=== PATIENT | female | born 1985 | race Caucasian/White ===

== ENCOUNTER 2016-10-26 13:31 | Observation (INO) | payer SELFPAY ==
[~2016-10-26] VITALS: Ht 162.6 cm; Wt 67.1 kg
[2016-10-26 13:39] VITALS: BP 108/74; PULSE 102; RESP 18; TEMP 100; O2SAT 98
--- NOTE | 2016-10-26 14:16 | PD ---
HPI Chief Complaint: Complaint Time Seen by Provider: 13:56 Travel History International Travel<30 days: No Contact w/Intl Traveler<30days: No Traveled to known affect area: No History of Present Illness HPI The patient was seen and examined in the presence of the nurse. Patient complains of low back pain and lightheadedness and urinary frequency. She has a temp of 100. Severity symptoms is moderate. Duration 3 days. No alleviating factors. No exacerbating factors. She does not have any midline back pain but it's more in the flank regions. PFSH Past Medical History Hx Anticoagulant Therapy: No Asthma: Yes Cardiovascular Problems: No Chemotherapy: No Cerebrovascular Accident: No Diabetes: No Diminished Hearing: No Hypertension: Yes Respiratory: Yes Immunizations Current: Yes Thyroid Disease: Yes (GOITER, HAS NOT BEEN SEEN BY PRIMARY YET) ?: Not LMP: 09/30/16 Menopausal: No : 4 Para: 1 Miscarriage: 1 : 2 Past Surgical History Hysterectomy: No Social History Alcohol Use: Yes (rare) Tobacco Use: Yes (1/2 PPD) Substance Use: Yes (HX IV DRUG ABUSE, states dilaudid 2mg qid ) Allergies-Medications (Allergen,Severity, Reaction): Coded Allergies: No Known Allergies (Verified , 10/26/16) Reported Meds & Prescriptions Reported Meds & Active Scripts Active No Active Prescriptions or Reported Medications Review of Systems General / Constitutional: Positive: Fever Eyes: No: Visual changes HENT: Positive: Lightheadedness, No: Headaches Cardiovascular: No: Chest Pain or Discomfort Respiratory: No: Shortness of Breath Gastrointestinal: No: Abdominal Pain Genitourinary: Positive: Frequency, No: Dysuria Musculoskeletal: Positive: Pain Skin: No Rash Neurologic: No: Weakness Psychiatric: No: Depression Endocrine: No: Polydipsia Hematologic/Lymphatic: No: Easy Bruising Physical Exam Narrative GENERAL: Well-nourished, well-developed patient with multiple somatic complaints . SKIN: Focused skin assessment reveals no rash and nodules. Skin is Warm and dry. HEAD: Atraumatic. Normocephalic. EYES: Pupils equal and round. No scleral icterus. No injection or drainage. ENT: No nasal bleeding or discharge. Mucous membranes pink and moist. NECK: Trachea midline. No JVD. CARDIOVASCULAR: Regular rate and rhythm. No murmur appreciated. RESPIRATORY: No accessory muscle use. Clear to auscultation. Breath sounds equal bilaterally. GASTROINTESTINAL: Abdomen soft, non-tender, nondistended. Hepatic and splenic margins not palpable. MUSCULOSKELETAL: No obvious deformities. No clubbing. No cyanosis. No edema. No midline tenderness of the back NEUROLOGICAL: Awake and alert. No obvious cranial nerve deficits. Motor grossly within normal limits. Normal speech. PSYCHIATRIC: Appropriate mood and affect; insight and judgment normal. Data Data Last Documented VS Vital Signs Date Time Temp Pulse Resp B/P (MAP) Pulse Ox O2 Delivery O2 Flow Rate FiO2 10/26/16 13:39 100.0 102 18 108/74 (85) 98 Orders Orders Iv Access Insert/Monitor (10/26/16 14:12) Complete Blood Count With Diff (10/26/16 14:12) Comprehensive Metabolic Panel (10/26/16 14:12) Urinalysis - C+S If Indicated (10/26/16 14:12) Ed Urine Pregnancytest Poc (10/26/16 14:17) Blood Culture (10/26/16 15:14) Admit Order (Ed Use Only) (10/26/16 15:14) Labs Laboratory Tests Test 10/26/16 14:30 White Blood Count 8.7 TH/MM3 Red Blood Count 4.85 MIL/MM3 Hemoglobin 13.8 GM/DL Hematocrit 40.3 % Mean Corpuscular Volume 83.2 FL Mean Corpuscular Hemoglobin 28.4 PG Mean Corpuscular Hemoglobin Concent 34.1 % Red Cell Distribution Width 12.2 % Platelet Count 222 TH/MM3 Mean Platelet Volume 8.0 FL Neutrophils (%) (Auto) 71.2 % Lymphocytes (%) (Auto) 20.3 % Monocytes (%) (Auto) 5.5 % Eosinophils (%) (Auto) 0.7 % Basophils (%) (Auto) 2.3 % Neutrophils # (Auto) 6.1 TH/MM3 Lymphocytes # (Auto) 1.8 TH/MM3 Monocytes # (Auto) 0.5 TH/MM3 Eosinophils # (Auto) 0.1 TH/MM3 Basophils # (Auto) 0.2 TH/MM3 CBC Comment DIFF FINAL Differential Comment Urine Color YELLOW Urine Turbidity CLEAR Urine pH 7.0 Urine Specific [place] 1.030 Urine Protein TRACE mg/dL Urine Glucose (UA) NEG mg/dL Urine Ketones 15 mg/dL Urine Occult Blood NEG Urine Nitrite NEG Urine Bilirubin NEG Urine Leukocyte Esterase NEG Urine RBC 0-3 /hpf Urine WBC 6-8 /hpf Urine Squamous Epithelial Cells > 8 /hpf Urine Mucus MANY /lpf Microscopic Urinalysis Comment CULT NOT INDICATED Blood Urea Nitrogen 10 MG/DL Creatinine 0.70 MG/DL Random Glucose 109 MG/DL Total Protein 8.0 GM/DL Albumin 3.9 GM/DL Calcium Level 9.0 MG/DL Alkaline Phosphatase 47 U/L Aspartate Amino Transf (AST/SGOT) 59 U/L Alanine Aminotransferase (ALT/SGPT) 111 U/L Total Bilirubin 0.4 MG/DL Sodium Level 140 MEQ/L Potassium Level 3.7 MEQ/L Chloride Level 106 MEQ/L Carbon Dioxide Level 24.9 MEQ/L Anion Gap 9 MEQ/L Estimat Glomerular Filtration Rate 99 ML/MIN [facility] Medical Decision Making Medical Screen Exam Complete: Yes Emergency Medical Condition: Yes Medical Record Reviewed: Yes Differential Diagnosis Pyelonephritis, UTI, flu syndrome Narrative Course I have reviewed the patient's electronic medical record. IV placed CBC is normal Metabolic profile is normal LFTs shows minor elevation of LFTs but she does have history of hep C Urinalysis is clean Urine is negative 2 sets of blood cultures drawn This is a 30-year-old female with history of IV drug abuse who presents with fever and tachycardia and back pain and a variety of vague somatic symptoms. There is concern for endocarditis here. She will be hospitalized to rule this out and get further evaluation. She does not have midline back pain. I do not have high clinical suspicion of epidural abscess or discitis but is in the differential. Hospitalist has been paged to discuss. Sepsis Criteria SIRS Criteria (2 or more): Heart rate over 90 Diagnosis Primary Impression: Fever Qualified Codes: R50.9 - Fever, unspecified Additional Impressions: Tachycardia Intravenous drug abuse Admitting Information Admitting Physician Requests: Admit Scripts No Active Prescriptions or Reported Meds Rico Velasquez MD Oct 26, 2016 14:16
[2016-10-26 14:47] LABS: AUTOMATED NEUTROPHIL # 6.1 TH/MM3 (1.8-7.7); BASOPHIL # 0.2 TH/MM3 (0-0.2); BASOPHIL % 2.3 % (0.0-2.0); BLOOD, URINE NEG (NEG); EOSINOPHIL # 0.1 TH/MM3 (0-0.4); EOSINOPHIL % 0.7 % (0.0-4.0); GLUCOSE,URINE NEG (NEG); HEMATOCRIT 40.3 % (35.0-46.0); HEMO FLAGS DIFF FINAL; KETONE, URINE 15 mg/dL (NEG); LYMPH % 20.3 % (9.0-44.0); LYMPHOCYTE # 1.8 TH/MM3 (1.0-4.8); MEAN CELL VOLUME 83.2 FL (80.0-100.0); MEAN CORPUSCULAR HEMOGLOBIN 28.4 PG (27.0-34.0); MEAN CORPUSCULAR HGB CONC 34.1 % (32.0-36.0); MONO % 5.5 % (0.0-8.0); NEUT % 71.2 % (16.0-70.0); NITRITE,URINE NEG (NEG); PLATELET COUNT 222 TH/MM3 (150-450); RED BLOOD COUNT 4.85 MIL/MM3 (4.00-5.30); RED CELL DISTRIBUTION WIDTH 12.2 % (11.6-17.2); WHITE BLOOD COUNT 8.7 TH/MM3 (4.0-11.0)
[2016-10-26 14:54] LABS: URINE COLOR YELLOW (YELLW/STRAW)
[2016-10-26 14:55] LABS: COMMENT (UR) CULT NOT INDICATED; CULTURE IF INDICATED CULT NOT INDICATED; MUCUS URINE MANY /lpf (OCC); RBC, URINE 0-3 /hpf (0-3); SQUAMOUS EPITHELIAL CELL URINE > 8 /hpf (0-5)
[2016-10-26 14:57] LABS: CHLORIDE 106 MEQ/L (98-107); POTASSIUM 3.7 MEQ/L (3.5-5.1); SODIUM (NA) 140 MEQ/L (136-145)
[2016-10-26 15:00] LABS: ANION GAP 9 MEQ/L (5-15); BICARBONATE 24.9 MEQ/L (21.0-32.0)
[2016-10-26 15:01] LABS: BLOOD UREA NITROGEN 10 MG/DL (7-18)
[2016-10-26 15:03] LABS: ALT (GPT) 111 U/L (10-53); AST (GOT) 59 U/L (15-37)
[2016-10-26 15:04] LABS: GLOMERULAR FILTRATION RATE 99 ML/MIN (>89)
[2016-10-26 15:05] LABS: TOTAL BILIRUBIN ADULT 0.4 MG/DL (0.2-1.0)
[2016-10-26 15:06] LABS: ALKALINE PHOSPHATASE 47 U/L (45-117)
[2016-10-26] MEDS ORDERED: VANCOMYCIN INJ 1,000 MG in SODIUM CHLOR 0.9% 250 ML INJ 250 ML IV ONE (15:45)
[2016-10-26] MEDS ORDERED: cefTRIAXone INJ 1,000 MG in SODIUM CHLORIDE 0.9% INJ 100 ML IV ONE (15:45)
[2016-10-26] MEDS ORDERED: SODIUM CHLORIDE 0.9% FLUSH 10 ML FLUSH IV FLUSH PRN (15:45)
[2016-10-26] MEDS ORDERED: KETOROLAC TROMETHAMINE 60 MG/2 ML (IM) VIAL IM PRN ×2 (15:45→16:30)
[2016-10-26] MEDS ORDERED: NALOXONE HCL 0.4 MG/ML AMP IV PUSH PRN (15:45)
[2016-10-26] MEDS: SODIUM CHLOR 0.9% 1000 ML INJ 1,000 ML IV SCH (15:49)
[2016-10-26 15:50] VITALS: BP 117/67; PULSE 78; RESP 16; O2SAT 98
[2016-10-26] MEDS: ONDANSETRON HCL 4 MG/2 ML VIAL IVP PRN ×2 (15:50→23:03)
--- NOTE | 2016-10-26 16:13 | RADRPT ---
EXAM DATE/TIME: 10/26/2016 15:58 [facility] COMPARISON: CHEST SINGLE AP, February 09, 2015, 15:01. INDICATIONS : Fever starting today MEDICAL HISTORY : None. SURGICAL HISTORY : None. ENCOUNTER: Initial ACUITY: 1 day PAIN SCORE: 0/10 LOCATION: Bilateral chest FINDINGS: A single view of the chest demonstrates the lungs to be symmetrically aerated without evidence of mas s, infiltrate or effusion. The cardiomediastinal contours are unremarkable. Osseous structures are intact. CONCLUSION: No acute cardiopulmonary process. Adrian Gupta MD on October 26, 2016 at 16:11 Board Certified Radiologist. This report was verified electronically.
[2016-10-26 16:42] VITALS: BP 105/69
[2016-10-26 17:00] VITALS: BP 109/76; PULSE 75; RESP 20; TEMP 97.6; O2SAT 99
[2016-10-26] MEDS ORDERED: IBUPROFEN 800 MG TAB PO ONE (17:15)
--- NOTE | 2016-10-26 17:27 | HHI.HP ---
HPI Service [facility] Primary Care Physician No Primary Care Physician Admission Diagnosis fever,tachycardia,IVDA Hx Diagnoses: Chief Complaint: back and abd pain Travel History International Travel<30 Days: No Contact w/Intl Traveler <30 Da: No Traveled to Known Affected Are: No History of Present Illness Melissa is a very pleasant 30-year-old female with a history of hepatitis C and previous IV drug use. Patient does complain of a bout 1 week of headache, back and abdominal pain. She noticed that the pain became intermittent and was throbbing. It was severe. She took ibuprofen with minimal relief. Lately she' s gotten more sleepy and feels as if she is unable to complete her activities of daily living due to the discomfort. She came to the emergency room for further evaluation rate she does have a mildly elevated temperature of 100 and some mild elevation in her transaminases. There is no recent travel. Patient has had some nausea without vomiting. No sick contacts. Patient come to the hospital for further evaluation and is recommended for observation unit due to these issues Review of Systems Constitutional: DENIES: Diaphoretic episodes, Fatigue, Fever, Weight gain, Weight loss, Chills, Dizziness, Change in appetite, Night Sweats Endocrine: DENIES: Abnorml menstrual pattern, Heat/cold intolerance, Polydipsia , Polyuria, Polyphagia Eyes: DENIES: Blurred vision, Eye pain Ears, nose, mouth, throat: DENIES: Tinnitus, Hearing loss, Vertigo, Nasal discharge, Oral lesions, Throat pain, Hoarseness, Ear Pain, Running Nose, Epistaxis, Sinus Pain, Toothache, Odynophagia Respiratory: DENIES: Apneas, Cough, Snoring, Wheezing, Hemoptysis, Sputum production, Shortness of breath Cardiovascular: DENIES: Chest pain, Palpitations, Syncope, Dyspnea on Exertion , PND, Lower Extremity Edema, Orthopnea, Claudication Gastrointestinal: COMPLAINS OF: Abdominal pain, Constipation Genitourinary: DENIES: Abnormal vaginal bleeding, Dysmenorrhea, Dyspareunia, Sexual dysfunction, Urinary frequency, Urinary incontinence, Urgency, Hematuria , Dysuria, Nocturia, Vaginal discharge Musculoskeletal: COMPLAINS OF: Joint pain, Muscle aches, DENIES: Stiffness, Joint Swelling, Back pain, Neck pain Hematologic/lymphatic: DENIES: Bruising, Lymphadenopathy Immunologic/allergic: DENIES: Eczema, Urticaria Psychiatric: DENIES: Anxiety, Confusion, Mood changes, Depression, Hallucinations, Agitation, Suicidal Ideation, Homicidal Ideation, Delusions Except as stated in HPI: all other systems reviewed are Neg Past Family Social History Past Medical History Hepatitis C Past Surgical History Denies Reported Medications Motrin [id number] Allergies: Coded Allergies: No Known Allergies (Verified , 10/26/16) Active Ordered Medications Reviewed in the EMR Family History Mother has "lots of problems " Father has history of hypertension and diabetes Social History employed [employer] from [employer] for 11 months and 2 days Physical Exam Vital Signs Vital Signs Date Time Temp Pulse Resp B/P (MAP) Pulse Ox O2 Delivery O2 Flow Rate FiO2 10/26/16 16:42 79 16 105/69 (81) 98 10/26/16 15:50 78 16 117/67 (84) 98 Room Air 10/26/16 13:39 100.0 102 18 108/74 (85) 98 Physical Exam GENERAL: This is a well-nourished, well-developed patient, in no apparent distress. SKIN: No rashes, ecchymoses or lesions. Cool and dry. HEAD: Atraumatic. Normocephalic. No temporal or scalp tenderness. EYES: Pupils equal round and reactive. Extraocular motions intact. No scleral icterus. No injection or drainage. ENT: Nose without bleeding, purulent drainage or septal hematoma. Throat without erythema, tonsillar hypertrophy or exudate. Uvula midline. Airway patent. NECK: Trachea midline. No JVD or lymphadenopathy. Supple, nontender, no meningeal signs. CARDIOVASCULAR: Regular rate and rhythm without murmurs, gallops, or rubs. RESPIRATORY: Clear to auscultation. Breath sounds equal bilaterally. No wheezes , rales, or rhonchi. GASTROINTESTINAL: Abdomen soft, non-tender, nondistended. No hepato-splenomegaly , or palpable masses. No guarding. MUSCULOSKELETAL: Extremities without clubbing, cyanosis, or edema. No joint tenderness, effusion, or edema noted. No calf tenderness. Negative Homans sign bilaterally. NEUROLOGICAL: Awake and alert. Cranial nerves II through XII intact. Motor and sensory grossly within normal limits. Five out of 5 muscle strength in all muscle groups. Normal speech. Laboratory Laboratory Tests Test 10/26/16 14:30 White Blood Count 8.7 Red Blood Count 4.85 Hemoglobin 13.8 Hematocrit 40.3 Mean Corpuscular Volume 83.2 Mean Corpuscular Hemoglobin 28.4 Mean Corpuscular Hemoglobin Concent 34.1 Red Cell Distribution Width 12.2 Platelet Count 222 Mean Platelet Volume 8.0 Neutrophils (%) (Auto) 71.2 Lymphocytes (%) (Auto) 20.3 Monocytes (%) (Auto) 5.5 Eosinophils (%) (Auto) 0.7 Basophils (%) (Auto) 2.3 Neutrophils # (Auto) 6.1 Lymphocytes # (Auto) 1.8 Monocytes # (Auto) 0.5 Eosinophils # (Auto) 0.1 Basophils # (Auto) 0.2 CBC Comment DIFF FINAL Differential Comment Urine Color YELLOW Urine Turbidity CLEAR Urine pH 7.0 Urine Specific [place] 1.030 Urine Protein TRACE Urine Glucose (UA) NEG Urine Ketones 15 Urine Occult Blood NEG Urine Nitrite NEG Urine Bilirubin NEG Urine Leukocyte Esterase NEG Urine RBC 0-3 Urine WBC 6-8 Urine Squamous Epithelial Cells > 8 Urine Mucus MANY Microscopic Urinalysis Comment CULT NOT INDICATED Blood Urea Nitrogen 10 Creatinine 0.70 Random Glucose 109 Total Protein 8.0 Albumin 3.9 Calcium Level 9.0 Alkaline Phosphatase 47 Aspartate Amino Transf (AST/SGOT) 59 Alanine Aminotransferase (ALT/SGPT) 111 Total Bilirubin 0.4 Sodium Level 140 Potassium Level 3.7 Chloride Level 106 Carbon Dioxide Level 24.9 Anion Gap 9 Estimat Glomerular Filtration Rate 99 Date/Time Source Procedure Growth Status 10/26/16 15:45 Blood Peripheral Aerobic Blood Culture Pending Received 10/26/16 15:45 Blood Peripheral Anaerobic Blood Culture Pending Received Result Diagram: 10/26/16 1430 10/26/16 1430 Imaging Last Impressions Chest X-Ray 10/26/16 0000 Signed Impressions: Service Date/Time: Wednesday, October 26, 2016 15:58 - CONCLUSION: No acute cardiopulmonary process. MD Erasto Fritz VTE Risk Assessment Erasto VTE Risk Assessment: No/Low Risk (score <= 1) Jeanettei Risk Assessment Model Point Value = 1 Point Value = 2 Point Value = 3 Point Value = 5 Age 41-60 Minor surgery BMI > 25 kg/m2 Swollen legs Varicose veins or History of unexplained or recurrent spontaneous Oral contraceptives or hormone replacement Sepsis (< 1 month) Serious lung disease, including pneumonia (< 1 month) Abnormal pulmonary function Acute myocardial infarction Congestive heart failure (< 1 month) History of inflammatory bowel disease Medical patient at bed rest Age 61-74 Arthroscopic surgery Major open surgery (> 45 min) Laparoscopic surgery (> 45 min) Malignancy Confined to bed (> 72 hours) Immobilizing plaster cast Central venous access Age >= 75 History of VTE Family history of VTE Factor V Leiden Prothrombin [id number] Lupus anticoagulant Anticardiolipin antibodies Elevated serum homocysteine Heparin-induced thrombocytopenia Other congenital or acquired thrombophilia Stroke (< 1 month) Elective arthroplasty Hip, pelvis, or leg fracture Acute spinal cord injury (< 1 month) Prophylaxis Regimen Total Risk Factor Score Risk Level Prophylaxis Regimen 0-1 Low Early ambulation 2 Moderate Order ONE of the following: *Sequential Compression Device (SCD) *Heparin 5000 units SQ BID 3-4 Higher Order ONE of the following medications: *Heparin 5000 units SQ TID *Enoxaparin/Lovenox 40 mg SQ daily (WT < 150 kg, CrCl > 30 mL/min) *Enoxaparin/Lovenox 30 mg SQ daily (WT < 150 kg, CrCl > 10-29 mL/min) *Enoxaparin/Lovenox 30 mg SQ BID (WT < 150 kg, CrCl > 30 mL/min) AND/OR *Sequential Compression Device (SCD) 5 or more Highest Order ONE of the following medications: *Heparin 5000 units SQ TID (Preferred with Epidurals) *Enoxaparin/Lovenox 40 mg SQ daily (WT < 150 kg, CrCl > 30 mL/min) *Enoxaparin/Lovenox 30 mg SQ daily (WT < 150 kg, CrCl > 10-29 mL/min) *Enoxaparin/Lovenox 30 mg SQ BID (WT < 150 kg, CrCl > 30 mL/min) AND *Sequential Compression Device (SCD) Assessment and Plan Problem List: (1) Abdominal pain ICD Code: R10.9 - Unspecified abdominal pain Plan: Etiology unclear, patient does have elevated LFTs and a history of hepatitis C, continue with Motrin when necessary for pain, follow up cultures (2) Transaminitis ICD Code: R74.0 - Nonspecific elevation of levels of transaminase and lactic acid dehydrogenase [LDH] Plan: Follow-up hepatitis C viral studies, CT abdomen and pelvis pending Araceli Harris MD Oct 26, 2016 17:27
[2016-10-26] MEDS ORDERED: BISACODYL EC 5 MG TABEC PO ONE (17:30)
[2016-10-26] MEDS ORDERED: DIATRIZOATE MEGLUM/DIATRIZOATE SOD 9 ML CUP PO ONE (17:45)
[2016-10-26 19:28] LABS: BHCG SCREEN QUALITATIVE LESS THAN 1 MIU/ML (0-5); CREATINE KINASE 55 U/L (26-192)
[2016-10-26] MEDS: SODIUM CHLORIDE 0.9% FLUSH 10 ML FLUSH IV FLUSH SCH (19:45)
[2016-10-26] MEDS: KETOROLAC TROMETHAMINE 30 MG/ML (IVP) VIAL IV PUSH PRN (19:47)
[2016-10-26 20:00] VITALS: BP 118/78; PULSE 85; RESP 16; TEMP 97.8; O2SAT 100
[2016-10-26] MEDS ORDERED: diphenhydrAMINE HCL 25 MG CAP PO PRN (20:45)
[2016-10-26] MEDS ORDERED: IOHEXOL 350 MG/ML 10 ML VIAL (for RAD DIAG) IVCONTRAST ONE (21:36)
--- NOTE | 2016-10-26 22:48 | RADRPT ---
EXAM DATE/TIME: 10/26/2016 21:12 [facility] COMPARISON: No previous studies available for comparison. INDICATIONS : Abdominal and back pain. IV CONTRAST: 75 cc Omnipaque 350 (iohexol) IV ORAL CONTRAST: Prescribed oral contrast ingested. RADIATION DOSE: 7.98 CTDIvol (mGy) MEDICAL HISTORY : Hypertension. Hepatitis C. SURGICAL HISTORY : None. ENCOUNTER: Initial ACUITY: 1 day PAIN SCALE: 5/10 LOCATION: abdomen TECHNIQUE: Volumetric scanning of the abdomen and pelvis was performed. Using automated exposure control and ad justment of the mA and/or kV according to patient size, radiation dose was kept as low as reasonably achievable to obtain optimal diagnostic quality images. DICOM format image data is available electro nically for review and comparison. FINDINGS: LOWER LUNGS: The visualized lower lungs are clear. LIVER: Homogeneous density without lesion. There is no dilation of the biliary tree. No calcified gallston es. SPLEEN: Normal size without lesion. PANCREAS: Within normal limits. KIDNEYS: Normal in size and shape. There is no mass, stone or hydronephrosis. ADRENAL GLANDS: Within normal limits. VASCULAR: There is no aortic aneurysm. BOWEL/MESENTERY: The stomach, small bowel, and colon demonstrate no acute abnormality. There is no free intraperitone al air or fluid. ABDOMINAL WALL: Within normal limits. RETROPERITONEUM: There is no lymphadenopathy. BLADDER: No wall thickening or mass. REPRODUCTIVE: Minimal free fluid is noted within the cul-de-sac. INGUINAL: There is no lymphadenopathy or hernia. MUSCULOSKELETAL: Mild scoliosis of the lumbar spine is noted. CONCLUSION: 1. Mild scoliosis of the lumbar spine. 2. Minimal free fluid within the cul-de-sac. Edgard Lacey MD on October 26, 2016 at 22:44 Board Certified Radiologist. This report was verified electronically.
[2016-10-27] VITALS: BP 90/70; PULSE 72; RESP 16; TEMP 97.3; O2SAT 99
[2016-10-27] MEDS: SODIUM CHLOR 0.9% 1000 ML INJ 1,000 ML IV SCH (03:49)
[2016-10-27 04:13] VITALS: RESP 20
[2016-10-27] MEDS: SODIUM CHLORIDE 0.9% FLUSH 10 ML FLUSH IV FLUSH SCH (08:35)
[2016-10-27] MEDS: KETOROLAC TROMETHAMINE 30 MG/ML (IVP) VIAL IV PUSH PRN (09:02)
[2016-10-27] MEDS: ONDANSETRON HCL 4 MG/2 ML VIAL IVP PRN (09:03)
[2016-10-27 09:34] VITALS: BP 97/68; PULSE 71; RESP 15; TEMP 97.6; O2SAT 98
[2016-10-27] MEDS ORDERED: PROM25TA10 PO (10:17)
[2016-10-27] MEDS ORDERED: PROMETHAZINE HCL 25 MG TAB PO ONE (11:00)
--- NOTE | 2016-10-27 11:05 | HHI.DCPOC ---
Discharge Care Plan Diagnosis: (1) Transaminitis Goals to Promote Your Health * To prevent worsening of your condition and complications * To maintain your health at the optimal level Directions to Meet Your Goals Take your medications as prescribed Follow your dietary instruction Follow activity as directed Keep your appointments as scheduled Take your immunizations and boosters as scheduled If your symptoms worsen call your PCP, if no PCP go to Urgent Care Center or Emergency Room Smoking is Dangerous to Your Health. Avoid second hand smoke Call the 24-hour hour crisis hotline for domestic abuse at Araceli Harris MD Oct 27, 2016 10:17
--- NOTE | 2016-10-27 11:52 | HHI.PR ---
Subjective Remarks patient seen in follow up for musculoskeletal pain and elevated transaminases No fever pain better Objective Vitals Vital Signs Date Time Temp Pulse Resp B/P (MAP) Pulse Ox O2 Delivery O2 Flow Rate FiO2 10/27/16 09:34 97.6 71 15 97/68 (78) 98 10/27/16 04:13 20 10/27/16 00:00 97.3 72 16 90/70 (77) 99 10/26/16 20:00 97.8 85 16 118/78 (91) 100 10/26/16 17:00 97.6 75 20 109/76 (87) 99 10/26/16 16:42 79 16 105/69 (81) 98 10/26/16 15:50 78 16 117/67 (84) 98 Room Air 10/26/16 13:39 100.0 102 18 108/74 (85) 98 I/O 10/26/16 10/26/16 10/26/16 10/27/16 10/27/16 10/27/16 07:00 15:00 23:00 07:00 15:00 23:00 Intake Total 1410 ml 1146 ml Balance 1410 ml 1146 ml Intake Oral 960 ml 240 ml IV Total 450 ml 906 ml # Voids 1 5 # Bowel Movements 2 Result Diagram: 10/26/16 1430 10/26/16 1430 Imaging Last Impressions Chest X-Ray 10/26/16 0000 Signed Impressions: Service Date/Time: Wednesday, October 26, 2016 15:58 - CONCLUSION: No acute cardiopulmonary process. Adrian Gupta MD Abdomen/Pelvis CT 10/26/16 0000 Signed Impressions: Service Date/Time: Wednesday, October 26, 2016 21:12 - CONCLUSION: 1. Mild scoliosis of the lumbar spine. 2. Minimal free fluid within the cul-de-sac. Edgard Lacey MD Objective Remarks GENERAL: This is a well-nourished, well-developed patient, in no apparent distress. CARDIOVASCULAR: Regular rate and rhythm without murmurs, gallops, or rubs. RESPIRATORY: Clear to auscultation. Breath sounds equal bilaterally. No wheezes , rales, or rhonchi. GASTROINTESTINAL: Abdomen soft, non-tender, nondistended. Normal active bowel sounds MUSCULOSKELETAL: Extremities without clubbing, cyanosis, or edema. NEURO: Alert & Oriented x4 to person, place, time, situation. Moves all ext x4 A/P Problem List: (1) Abdominal pain ICD Code: R10.9 - Unspecified abdominal pain Plan: likely musculoskeletal from scoliosis, continue supportive care Hepatitis C viral studies pending, Phenergan when necessary for nausea (2) Transaminitis ICD Code: R74.0 - Nonspecific elevation of levels of transaminase and lactic acid dehydrogenase [LDH] Plan: Follow-up hepatitis C viral studies, outpatient management with PCP referral Discharge Planning dc home Diet regular Activity as tolerated Araceli Harris MD Oct 27, 2016 11:52
[2016-10-27 12:11] LABS: AUTOMATED NEUTROPHIL # 4.2 TH/MM3 (1.8-7.7); BASOPHIL % 0.6 % (0.0-2.0); EOSINOPHIL % 0.5 % (0.0-4.0); HEMATOCRIT 35.8 % (35.0-46.0); HEMO FLAGS DIFF FINAL; LYMPH % 19.4 % (9.0-44.0); LYMPHOCYTE # 1.1 TH/MM3 (1.0-4.8); MEAN CELL VOLUME 83.7 FL (80.0-100.0); MEAN CORPUSCULAR HEMOGLOBIN 27.7 PG (27.0-34.0); MEAN CORPUSCULAR HGB CONC 33.1 % (32.0-36.0); MONO % 6.5 % (0.0-8.0); PLATELET COUNT 173 TH/MM3 (150-450); RED BLOOD COUNT 4.28 MIL/MM3 (4.00-5.30); RED CELL DISTRIBUTION WIDTH 12.6 % (11.6-17.2); WHITE BLOOD COUNT 5.7 TH/MM3 (4.0-11.0)
[2016-10-27 12:20] LABS: CHLORIDE 110 MEQ/L (98-107); POTASSIUM 3.9 MEQ/L (3.5-5.1); SODIUM (NA) 142 MEQ/L (136-145)
[2016-10-27 12:26] LABS: ANION GAP 8 MEQ/L (5-15); BICARBONATE 24.3 MEQ/L (21.0-32.0); BLOOD UREA NITROGEN 7 MG/DL (7-18)
[2016-10-27 12:31] LABS: ALT (GPT) 105 U/L (10-53); AST (GOT) 57 U/L (15-37); GLOMERULAR FILTRATION RATE 104 ML/MIN (>89); TOTAL BILIRUBIN ADULT 0.3 MG/DL (0.2-1.0)
[2016-10-27 12:47] LABS: ALKALINE PHOSPHATASE 40 U/L (45-117)
[2016-10-29 13:53] LABS: HCV RNA PCR LOGIU/ML 5.71 (0-1.18)
== END 2016-10-27 12:20 | disposition home or self-care (01) ==
LOC: PHED 13:31 → PHEDA 15:16 → INTOOBSV 15:16 → PH3A 16:43
PROVIDERS: ADMIT Hospitalist; ATTEND Hospitalist
DX: R74.0 Nonspecific elevation of levels of transaminase and lactic acid dehydrogenase [LDH] (principal); R50.9 Fever, unspecified; R00.0 Tachycardia, unspecified; B19.20 Unspecified viral hepatitis C without hepatic coma; R10.9 Unspecified abdominal pain; M41.9 Scoliosis, unspecified; M54.5 Low back pain; R35.0 Frequency of micturition; I10 Essential (primary) hypertension; R11.0 Nausea; E04.9 Nontoxic goiter, unspecified; R51 Headache; J45.909 Unspecified asthma, uncomplicated; F19.10 Other psychoactive substance abuse, uncomplicated; F17.200 Nicotine dependence, unspecified, uncomplicated
CPT/HCPCS: 71010; 74177; 80053; 81001; 82550; 84703; 85025; 87040; 87522; 96361; 96365; 96375; 96376; 99285; G0378; J0696; J1885; J2405; J3370; J7030; J7050; Q0169; Q9963; Q9967

== ENCOUNTER 2017-04-12 13:02 | Emergency (ER) | payer SELFPAY ==
[~2017-04-12 13:02] MED LIST: PROM25TA10 PO
[2017-04-12 13:52] VITALS: BP 122/80; PULSE 100; RESP 16; TEMP 99.2; O2SAT 100
--- NOTE | 2017-04-12 15:45 | PD ---
HPI Chief Complaint: [facility] Helper Problem/Complaint Time Seen by Provider: 15:28 Travel History International Travel<30 days: No Contact w/Intl Traveler<30days: No Traveled to known affect area: No History of Present Illness HPI The patient is a 31-year-old female who presents to the emergency department for vaginal bleeding and . The patient is with one previous vaginal delivery 9 years ago. The patient last menstrual cycle was February 22, 2017. The patient states 3 weeks ago she took several tests which were "faintly positive "and assume she was . Approximately 13 days ago the patient started to have some vaginal spotting, now complains of increased vaginal bleeding with dark red blood clots and occasional suprapubic to right lower quadrant abdominal cramping. She denies any known history of previous ectopic . She does complain of mild nausea and soreness to the breast bilaterally. She denies any vomiting or upper abdominal pain. She has not followed up with an infectious waste technician. Symptoms are mild to moderate without any current alleviating or exacerbating factors. The patient states her blood type is O-. PFSH Past Medical History Hx Anticoagulant Therapy: No Asthma: Yes Anxiety: Yes Depression: Yes Cancer: No Cardiovascular Problems: No Chemotherapy: No Cerebrovascular Accident: No Diabetes: No Diminished Hearing: No Endocrine: Yes (Goiter ) Genitourinary: No Hepatitis: Yes (hep c) Hypertension: Yes Immune Disorder: Yes (hep C) Musculoskeletal: Yes Neurologic: Yes Psychiatric: Yes Reproductive: Yes (endometriosis ) Respiratory: Yes Immunizations Current: Yes Thyroid Disease: Yes (GOITER, HAS NOT BEEN SEEN BY PRIMARY YET) ?: Unknown Menopausal: No : 4 Para: 1 Miscarriage: 1 : 2 Past Surgical History Hysterectomy: No Social History Alcohol Use: Yes (rare) Tobacco Use: Yes (1/2 PPD) Substance Use: Yes (cocaine use in the past ) Allergies-Medications (Allergen,Severity, Reaction): Coded Allergies: No Known Allergies (Verified , 10/26/16) Reported Meds & Prescriptions Reported Meds & Active Scripts Active Phenergan (Promethazine HCl) 25 Mg Tablet 25 Mg PO ONCE PRN Review of Systems Except as stated in HPI: all other systems reviewed are Neg General / Constitutional: No: Fever Cardiovascular: No: Chest Pain or Discomfort Respiratory: No: Shortness of Breath Gastrointestinal: Positive: Nausea, No: Vomiting, Diarrhea, Abdominal Pain Genitourinary: Positive: Pelvic Pain, Vaginal Bleeding, No: Dysuria, Discharge Skin: Positive Breast Tenderness Physical Exam Narrative GENERAL: Awake, alert, pleasant 31-year-old female who appears her stated age and is in no acute respiratory distress. SKIN: Focused skin assessment warm/dry. HEAD: Atraumatic. Normocephalic. EYES: No injection or drainage. NECK: Trachea midline. No JVD. CARDIOVASCULAR: Regular rate and rhythm. No murmur appreciated. RESPIRATORY: No accessory muscle use. Clear to auscultation. Breath sounds equal bilaterally. GASTROINTESTINAL: Abdomen soft, minimal suprapubic tenderness. No guarding or rigidity. Back: No CVA tenderness. Pelvic: The exam was performed in the presence of a female nurse. External examination reveals no rashes or lesions. Speculum examination does reveal small amount of blood in the vaginal wall. Bluish coloration to the cervix, cervix is closed but there is blood at the cervical loss. MUSCULOSKELETAL: No obvious deformities. No clubbing. No cyanosis. No edema. NEUROLOGICAL: Awake and alert. No obvious cranial nerve deficits. Motor grossly within normal limits. Normal speech. PSYCHIATRIC: Appropriate mood and affect; insight and judgment normal. Data Data Last Documented VS Vital Signs Date Time Temp Pulse Resp B/P (MAP) Pulse Ox O2 Delivery O2 Flow Rate FiO2 04/12/17 19:33 83 16 128/84 98 04/12/17 13:52 99.2 Orders Orders Beta Hcg (Quant/Titer) (04/12/17 13:54) Complete Blood Count With Diff (04/12/17 13:54) Comprehensive Metabolic Panel (04/12/17 13:54) Complete Rh (04/12/17 13:54) Type And Screen (04/12/17 13:54) Act Partial Throm Time (Ptt) (04/12/17 13:54) Prothrombin Time / Inr (Pt) (04/12/17 13:54) Us Pelvis (Ques Pr/Ect)W Trans (04/12/17 ) Rhogam Only (04/12/17 15:56) Ed Urine Pregnancytest Poc (04/12/17 16:05) Ed Discharge Order (04/12/17 18:43) Mandatory Outpatient Referral (04/12/17 18:49) Labs Laboratory Tests Test 04/12/17 15:50 White Blood Count 7.0 TH/MM3 Red Blood Count 4.55 MIL/MM3 Hemoglobin 13.6 GM/DL Hematocrit 39.8 % Mean Corpuscular Volume 87.5 FL Mean Corpuscular Hemoglobin 29.9 PG Mean Corpuscular Hemoglobin Concent 34.2 % Red Cell Distribution Width 13.7 % Platelet Count 223 TH/MM3 Mean Platelet Volume 7.6 FL Neutrophils (%) (Auto) 64.7 % Lymphocytes (%) (Auto) 27.0 % Monocytes (%) (Auto) 7.0 % Eosinophils (%) (Auto) 0.9 % Basophils (%) (Auto) 0.4 % Neutrophils # (Auto) 4.5 TH/MM3 Lymphocytes # (Auto) 1.9 TH/MM3 Monocytes # (Auto) 0.5 TH/MM3 Eosinophils # (Auto) 0.1 TH/MM3 Basophils # (Auto) 0.0 TH/MM3 CBC Comment DIFF FINAL Differential Comment Prothrombin Time 10.0 SEC Prothromb Time International Ratio 1.0 RATIO Activated Partial Thromboplast Time 27.0 SEC Blood Urea Nitrogen 10 MG/DL Creatinine 0.83 MG/DL Random Glucose 91 MG/DL Total Protein 7.9 GM/DL Albumin 3.8 GM/DL Calcium Level 8.7 MG/DL Alkaline Phosphatase 55 U/L Aspartate Amino Transf (AST/SGOT) 92 U/L Alanine Aminotransferase (ALT/SGPT) 218 U/L Total Bilirubin 0.3 MG/DL Sodium Level 139 MEQ/L Potassium Level 3.6 MEQ/L Chloride Level 104 MEQ/L Carbon Dioxide Level 28.4 MEQ/L Anion Gap 7 MEQ/L Estimat Glomerular Filtration Rate 81 ML/MIN Human Chorionic Gonadotropin, Quant 85 MIU/ML [facility] Medical Decision Making Medical Screen Exam Complete: Yes Emergency Medical Condition: Yes Medical Record Reviewed: Yes Differential Diagnosis Differential diagnosis includes normal , ectopic , threatened AB, incomplete AB, complete AB, retained products of conception, nephrolithiasis. Narrative Course IV was established, labs were drawn and sent, and the patient was placed on cardiac telemetry monitoring and continuous pulse oximetry monitoring. Bedside UA test was obtained. A pelvic exam was completed in the presence of a female nurse. Patient states she has O- blood, therefore, complete Rh was sent to lab and RhoGam was ordered. Pelvic examination does reveal a small amount of blood in the vaginal vault. Bedside UA test was positive, formal quantitative beta-hCG was sent to lab and ultrasound was performed to evaluate for possible ectopic . The patient was signed out to the oncoming physician at 5 PM. Condition: Stable Jcarlos Mcduffie MD Apr 12, 2017 15:44
[2017-04-12 16:16] LABS: AUTOMATED NEUTROPHIL # 4.5 TH/MM3 (1.8-7.7); BASOPHIL % 0.4 % (0.0-2.0); EOSINOPHIL # 0.1 TH/MM3 (0-0.4); EOSINOPHIL % 0.9 % (0.0-4.0); HEMATOCRIT 39.8 % (35.0-46.0); HEMOGLOBIN 13.6 GM/DL (11.6-15.3); LYMPHOCYTE # 1.9 TH/MM3 (1.0-4.8); MEAN CELL VOLUME 87.5 FL (80.0-100.0); MEAN CORPUSCULAR HEMOGLOBIN 29.9 PG (27.0-34.0); MEAN CORPUSCULAR HGB CONC 34.2 % (32.0-36.0); MEAN PLATELET VOLUME 7.6 FL (7.0-11.0); MONOCYTE # 0.5 TH/MM3 (0-0.9); NEUT % 64.7 % (16.0-70.0); PLATELET COUNT 223 TH/MM3 (150-450); RED BLOOD COUNT 4.55 MIL/MM3 (4.00-5.30); RED CELL DISTRIBUTION WIDTH 13.7 % (11.6-17.2)
[2017-04-12 16:36] LABS: ALBUMIN 3.8 GM/DL (3.4-5.0); AST (GOT) 92 U/L (15-37); BICARBONATE 28.4 MEQ/L (21.0-32.0); BLOOD UREA NITROGEN 10 MG/DL (7-18); CALCIUM 8.7 MG/DL (8.5-10.1); CHLORIDE 104 MEQ/L (98-107); CREATININE 0.83 MG/DL (0.50-1.00); GLOMERULAR FILTRATION RATE 81 ML/MIN (>89); GLUCOSE,RANDOM 91 MG/DL (74-106); SODIUM (NA) 139 MEQ/L (136-145)
[2017-04-12 16:42] LABS: ALKALINE PHOSPHATASE 55 U/L (45-117); ALT (GPT) 218 U/L (10-53); TOTAL BILIRUBIN ADULT 0.3 MG/DL (0.2-1.0); TOTAL PROTEIN 7.9 GM/DL (6.4-8.2)
--- NOTE | 2017-04-12 18:35 | RADRPT ---
EXAM DATE/TIME: 04/12/2017 17:21 [place] COMPARISON: No previous studies available for comparison. INDICATIONS : Pelvic pain and bleeding with . LAB(S): Beta-hC MEDICAL HISTORY : . Hypertension. Hepatitis C. Miscarriage x 1. x 2. Asthma. Bulging disc. Depression . Anxiety. SURGICAL HISTORY : None. ENCOUNTER: Initial ACUITY: 1 day PAIN SCORE: 1/10 LOCATION: Bilateral pelvis MEASUREMENTS: UTERUS: 9.0 x 4.7 x 3.1 cm ENDOMETRIAL STRIPE: 3 mm RIGHT OVARY: 4.4 x 2.3 x 2.1 cm LEFT OVARY: 3.4 x 2.0 x 1.9 cm FINDINGS: The uterus is anteverted. No stripe has a homogeneous echotexture and measures 3 mm. No endometrial fluid. No gestational sac identified. There are to nabothian cysts seen in the cervix adjacent to the canal, both measuring 3 mm. Both ovaries are sonographically normal with a few follicular cysts. There is a mild free fluid in the cul-de-sac. CONCLUSION: 1. Intrauterine is not documented. 2. Mild amount of free fluid in the cul-de-sac. Vickey Chavira MD on April 12, 2017 at 18:31 Board Certified Radiologist. This report was verified electronically.
--- NOTE | 2017-04-12 18:43 | PD ---
Physical Exam Date Seen by Provider: Apr 12, 2017 Time Seen by Provider: 18:40 Narrative 31-year-old female came to the emergency room with vaginal bleeding. She had a home test positive. Patient has not seen an OB or had an ultrasound for this previously. She was seen by the previous ER physician. Please refer to his history and physical for further details. Signout was to follow-up on her ultrasound result. Beta-hCG was 87 only. The ultrasound report is back and shows no intrauterine . The small amount of fluid in the cul-de-sac. Based on this this could either be a completed or an early ectopic. Patient will be called back for a repeat beta-hCG quant. Patient is also O- blood type and she is receiving RhoGam that was ordered by the previous ER physician. Data Data Last Documented VS Orders Orders Beta Hcg (Quant/Titer) (04/12/17 13:54) Complete Blood Count With Diff (04/12/17 13:54) Comprehensive Metabolic Panel (04/12/17 13:54) Complete Rh (04/12/17 13:54) Type And Screen (04/12/17 13:54) Act Partial Throm Time (Ptt) (04/12/17 13:54) Prothrombin Time / Inr (Pt) (04/12/17 13:54) Us Pelvis (Ques Pr/Ect)W Trans (04/12/17 ) Rhogam Only (04/12/17 15:56) Ed Urine Pregnancytest Poc (04/12/17 16:05) Ed Discharge Order (04/12/17 18:43) Mandatory Outpatient Referral (04/12/17 18:49) Labs Laboratory Tests Test 04/12/17 15:50 White Blood Count 7.0 TH/MM3 Red Blood Count 4.55 MIL/MM3 Hemoglobin 13.6 GM/DL Hematocrit 39.8 % Mean Corpuscular Volume 87.5 FL Mean Corpuscular Hemoglobin 29.9 PG Mean Corpuscular Hemoglobin Concent 34.2 % Red Cell Distribution Width 13.7 % Platelet Count 223 TH/MM3 Mean Platelet Volume 7.6 FL Neutrophils (%) (Auto) 64.7 % Lymphocytes (%) (Auto) 27.0 % Monocytes (%) (Auto) 7.0 % Eosinophils (%) (Auto) 0.9 % Basophils (%) (Auto) 0.4 % Neutrophils # (Auto) 4.5 TH/MM3 Lymphocytes # (Auto) 1.9 TH/MM3 Monocytes # (Auto) 0.5 TH/MM3 Eosinophils # (Auto) 0.1 TH/MM3 Basophils # (Auto) 0.0 TH/MM3 CBC Comment DIFF FINAL Differential Comment Prothrombin Time 10.0 SEC Prothromb Time International Ratio 1.0 RATIO Activated Partial Thromboplast Time 27.0 SEC Blood Urea Nitrogen 10 MG/DL Creatinine 0.83 MG/DL Random Glucose 91 MG/DL Total Protein 7.9 GM/DL Albumin 3.8 GM/DL Calcium Level 8.7 MG/DL Alkaline Phosphatase 55 U/L Aspartate Amino Transf (AST/SGOT) 92 U/L Alanine Aminotransferase (ALT/SGPT) 218 U/L Total Bilirubin 0.3 MG/DL Sodium Level 139 MEQ/L Potassium Level 3.6 MEQ/L Chloride Level 104 MEQ/L Carbon Dioxide Level 28.4 MEQ/L Anion Gap 7 MEQ/L Estimat Glomerular Filtration Rate 81 ML/MIN Human Chorionic Gonadotropin, Quant 85 MIU/ML MDM Supervised Visit with VERENICE: No Diagnosis Primary Impression: Vaginal bleeding Additional Impressions: Qualified Codes: Z34.90 - Encounter for supervision of normal , unspecified, unspecified trimester Completed versus early ectopic Referrals: Luis Carbone MD 3 days Additional Instruction: Please return to the emergency room or follow up with the OB who is name and number been given to you. You need a repeat blood test for beta-hCG done in 48 hours. It can be either done by the OB or in the emergency room. Disposition: 01 DISCHARGE HOME Condition: Stable Mildred Velez MD Apr 12, 2017 18:43
[2017-04-12 19:33] VITALS: BP 128/84; PULSE 83; RESP 16; O2SAT 98
== END 2017-04-12 20:00 | disposition home or self-care (01) ==
LOC: NEPD 13:02
DX: O46.90 Antepartum hemorrhage, unspecified, unspecified trimester (principal); O26.90 Pregnancy related conditions, unspecified, unspecified trimester; F41.8 Other specified anxiety disorders; B19.20 Unspecified viral hepatitis C without hepatic coma; F17.210 Nicotine dependence, cigarettes, uncomplicated; Z3A.00 Weeks of gestation of pregnancy not specified
CPT/HCPCS: 76700; 76817; 80053; 84702; 84703; 85025; 85610; 85730; 86850; 86900; 86901; 90384; 96372; J2790

== ENCOUNTER 2017-07-08 11:42 | Emergency (ER) | payer SELFPAY ==
[2017-07-08 11:46] VITALS: BP 111/75; PULSE 112; RESP 20; TEMP 99.1; O2SAT 97
[2017-07-08 12:04] LABS: BLOOD, URINE NEG (NEG); GLUCOSE,URINE 250 mg/dL (NEG); KETONE, URINE TRACE mg/dL (NEG); NITRITE,URINE POS (NEG); PH, URINE 6.5 (5.0-8.5); URINE LEUKOCYTE ESTERASE MOD (NEG)
[2017-07-08 12:13] LABS: BILIRUBIN, URINE NEG (NEG); URINE COLOR ORANGE (YELLW/STRAW)
[2017-07-08 12:16] LABS: AMORPHOUS SEDIMENT, URINE FEW; BACTERIA, URINE FEW /hpf; RBC, URINE 0-3 /hpf (0-3); WHITE BLOOD CELL CLUMPS MOD
[2017-07-08] MEDS ORDERED: CEPH-460 PO (12:24)
--- NOTE | 2017-07-08 12:24 | PD ---
HPI Chief Complaint: Complaint Time Seen by Provider: 11:51 Travel History International Travel<30 days: No Contact w/Intl Traveler<30days: No Traveled to known affect area: No History of Present Illness HPI 31-year-old female presents with 5 day history of burning with urination. She states she tried Azo and that helps the first today but then her symptoms got worse. She denies any vomiting, fever or other concurrent complaints at this time. Quality is burning. Severity is with urination. She denies other modifying factors. Duration is 5 days. PFSH Past Medical History Hx Anticoagulant Therapy: No Asthma: Yes Anxiety: Yes Depression: Yes Cancer: No Cardiovascular Problems: No Chemotherapy: No Cerebrovascular Accident: No Diabetes: No Diminished Hearing: No Genitourinary: No Hepatitis: Yes (hep c) Hypertension: Yes Immune Disorder: Yes (hep C) Implanted Vascular Access Dvce: No Musculoskeletal: Yes Neurologic: Yes Psychiatric: Yes Reproductive: Yes (endometriosis ) Respiratory: Yes Immunizations Current: Yes Thyroid Disease: Yes (GOITER) Influenza Vaccination: No ?: Not LMP: THE June Menopausal: No : 4 Para: 1 Miscarriage: 1 : 2 Past Surgical History Surgical History: No Previous Surgery Hysterectomy: No Social History Alcohol Use: Yes (rare) Tobacco Use: Yes (1/2 PPD) Substance Use: No (cocaine use in the past ) Allergies-Medications (Allergen,Severity, Reaction): Coded Allergies: No Known Allergies (Verified Adverse Reaction, Unknown, 07/08/17) Reported Meds & Prescriptions Reported Meds & Active Scripts Active Keflex (Cephalexin) 500 Mg Cap 500 Mg PO Q12H 7 Days Review of Systems Except as stated in HPI: all other systems reviewed are Neg Physical Exam Narrative GENERAL: 31-year-old female in no apparent distress SKIN: Focused skin assessment warm/dry. HEAD: Atraumatic. Normocephalic. EYES: Pupils equal and round. No scleral icterus. No injection or drainage. ENT: No nasal bleeding or discharge. NECK: Trachea midline. No JVD. CARDIOVASCULAR: Regular rate and rhythm. RESPIRATORY: No accessory muscle use. No increased effort GASTROINTESTINAL: Abdomen soft, non-tender, nondistended. MUSCULOSKELETAL: No obvious deformities. No clubbing. No cyanosis. No edema. No CVA tenderness NEUROLOGICAL: Awake and alert. No obvious cranial nerve deficits. Motor grossly within normal limits. Normal speech. PSYCHIATRIC: Appropriate mood and affect; insight and judgment normal. Data Data Last Documented VS Vital Signs Date Time Temp Pulse Resp B/P (MAP) Pulse Ox O2 Delivery O2 Flow Rate FiO2 07/08/17 11:46 99.1 112 20 111/75 (87) 97 Orders Orders Urinalysis - C+S If Indicated (07/08/17 11:48) Ed Urine Pregnancytest Poc (07/08/17 11:48) Urine Culture (07/08/17 11:51) Ed Discharge Order (07/08/17 12:23) Labs Laboratory Tests Test 07/08/17 11:51 Urine Collection Type CLEAN CATCH Urine Color ORANGE Urine Turbidity SL CLOUDY Urine pH 6.5 Urine Specific [place] 1.010 Urine Protein 300 OR GREATER mg/dL Urine Glucose (UA) 250 mg/dL Urine Ketones TRACE mg/dL Urine Occult Blood NEG Urine Nitrite POS Urine Bilirubin NEG Urine Urobilinogen GREATER/EQUAL 8.0 MG/DL Urine Leukocyte Esterase MOD Urine RBC 0-3 /hpf Urine WBC 25-49 /hpf Urine WBC Clumps MOD Urine Squamous Epithelial Cells 6-8 /hpf Urine Amorphous Sediment FEW Urine Bacteria FEW /hpf Microscopic Urinalysis Comment CULTURE INDICATED MDM Medical Decision Making Medical Screen Exam Complete: Yes Emergency Medical Condition: Yes Medical Record Reviewed: Yes (Past history confirmed) Differential Diagnosis UTI, stone, cyst Narrative Course test is negative, will await urinalysis but likely urinary tract infection. UA with signs of UTI. Will give antibiotics, all questions answered. Patient knows that follow up is incumbent on them and to return to the emergency room immediately if new or worsening symptoms develop. Patient given strict return precautions, vitals reviewed and are normal, agrees to further workup as an outpatient. Diagnosis Primary Impression: UTI (urinary tract infection) Qualified Codes: N39.0 - Urinary tract infection, site not specified Patient Instructions: General Instructions Additional Instructions: return as needed, follow with primary monday for recheck, tylenol as needed for pain Med/Other Pt SpecificInfo: Prescription(s) given Scripts Cephalexin (Keflex) 500 Mg Cap 500 MG PO Q12H for Infection for 7 Days, #14 CAP 0 Refills Prov: Elyssa Constantino MD 07/08/17 Disposition: 01 DISCHARGE HOME Condition: Stable Elyssa Constantino MD Jul 08, 2017 12:24
== END 2017-07-08 12:33 | disposition home or self-care (01) ==
LOC: PHED 11:42
DX: N39.0 Urinary tract infection, site not specified (principal); B95.7 Other staphylococcus as the cause of diseases classified elsewhere; J45.909 Unspecified asthma, uncomplicated; F41.9 Anxiety disorder, unspecified; F32.9 Major depressive disorder, single episode, unspecified; B19.20 Unspecified viral hepatitis C without hepatic coma; I10 Essential (primary) hypertension; E04.9 Nontoxic goiter, unspecified; F17.200 Nicotine dependence, unspecified, uncomplicated
CPT/HCPCS: 81001; 84703; 86403; 87077; 87086; 87186; 99283